=== PATIENT | female | born 1985 | race Caucasian/White ===

== ENCOUNTER 2018-02-13 09:08 | Emergency (ER) | payer OTHER ==
[2018-02-13] MEDS: NS 1,000 ML IV (09:45)
[2018-02-13] MEDS: diphenhydrAMINE INJ 50MG/ML VIAL (J1200) IV (09:51)
[2018-02-13] MEDS: ONDANSETRON 4MG/2ML VIAL (J2405) IV (09:51)
[2018-02-13] MEDS: KETOROLAC 30 MG/ML VIAL (J1885) IV (09:54)
[2018-02-13] MEDS: LORazepam 2 MG/ML VIAL (J2060) IV (09:59)
== END 2018-02-13 11:23 | disposition home or self-care (01) ==
LOC: M ED 09:08
DX: G44.209 Tension-type headache, unspecified, not intractable (principal); Z79.899 Other long term (current) drug therapy
CPT/HCPCS: J1200

== ENCOUNTER → 2018-10-10 | Outpatient (REF) | payer OTHER ==
[~2018-10-10] MED LIST: DICL1GEL3; IBUP80TA PO; METH1TAB40 PO
== END ==
LOC: M SFHCLERA 11:21
PROVIDERS: ATTEND Physician Assistant
DX: R50.9 Fever, unspecified (principal)

== ENCOUNTER → 2020-12-08 | Outpatient (CLI) | payer OTHER ==
[~2020-12-08] MED LIST changes: +METH-1164 PO; -METH1TAB40 PO
--- NOTE | 2020-12-08 12:30 | REP ---
INDICATION: PAIN COMPARISON: None. TECHNIQUE: AP and frog-lateral views of the right hip hip FINDINGS: Osseous structures, joint spaces, and surrounding soft tissues are normal. No evidence for acute or healed injury. No overt arthritic changes. IMPRESSION: Normal right hip radiographs. <Electronically signed by Tony Fernando > 12/08/20 [id number]
--- NOTE | 2020-12-08 12:31 | REP ---
INDICATION: RADICULOPATHY LUMBAR REGION COMPARISON: None. TECHNIQUE: AP, lateral, bilateral oblique, and coned-down views of the lumbar spine. FINDINGS: Alignment and lordosis maintained. Vertebral bodies are intact. No acute fracture/compression injury or subluxation. No obvious spondylolysis or spondylolisthesis. Endplate sclerosis with disc space narrowing noted at L5-S1 and to a lesser extent L4-5. IMPRESSION: Disc space narrowing at L5-S1 and L4-5. <Electronically signed by Tony Fernando > 12/08/20 [id number]
== END ==
LOC: M WUC 12:08
PROVIDERS: ATTEND Physician Assistant
DX: M54.16 Radiculopathy, lumbar region (principal); M25.551 Pain in right hip